=== PATIENT | female | born 1975 | race Caucasian/White ===

== ENCOUNTER 2020-08-17 10:00 | Outpatient (RCR) | payer BC, SELFPAY ==
--- NOTE | 2020-10-09 16:32 | MHC.PT.DC ---
[facility] [place] Office [place] Office [place] Office [address] [phone] F: [phone] F: [phone] F: [phone] F: [phone] Physical Therapy Discharge Report Diagnosis: R LEG PAIN Date of Surgery: Date of Evaluation: 06/16/20 Date of Discharge: 08/17/20 Treatments to Date: 13 Cancellations to Date: 1 No Shows to Date: 0 Discharge Status: Improved Function Independent with HEP Discharge Summary: PER LAST NOTE BY [facility] CADENA PT...pt overall feels PT has helped her regarding her pain severity, frequency, and ability to tolerate therapeutic and recreational activities. pt is I w/ HEP and has appropriate bands to perform ex's at home. pt was educated to continue to perform HEP at home to maintain gains made in PT. pt verbalized understanding. pt is D/C'd from this PT POC. Electronically signed by: MONSTER VALE PT Please sign and return to therapist. Thank you for your referral.
== END 2020-10-13 08:32 | disposition other institution (70) ==
LOC: HO.PT 10:00
PROVIDERS: PCP Internal Medicine; Visit Provider Internal Medicine
DX: M79.604 Pain in right leg (principal)
CPT/HCPCS: 97110; 97140; 97530

== ENCOUNTER 2024-06-09 14:00 | Outpatient (RCR) | payer BC, SELFPAY ==
[2024-06-07 10:05] VITALS: BP 140/68; PULSE 94
== END 2024-07-14 11:43 | disposition home or self-care (01) ==
LOC: HO.PT 14:00
PROVIDERS: PCP Internal Medicine; Visit Provider Family Medicine
DX: H81.10 Benign paroxysmal vertigo, unspecified ear (principal)
CPT/HCPCS: 95992; 97110; 97112; 97161

== ENCOUNTER 2024-10-25 16:56 | Emergency (ER) | payer BC, SELFPAY ==
[2024-10-25 17:07] VITALS: BP 129/70; PULSE 93; RESP 16; TEMP 36.6; O2SAT 97; BMI 26.6
--- NOTE | 2024-10-25 17:09 | ED.GENADULT ---
HPI - General Adult General Chief complaint: General Medical Stated complaint: vertigo Time Seen by Provider: 10/25/24 17:13 Source: patient Mode of arrival: ambulatory Limitations: no limitations History of Present Illness ED Provider: Nati Preciado PA-C HPI narrative: Patient is a 49 year old assigned female at with a history of GERD and vertigo presenting to the emergency department today with an episode of vertigo. Patient states that she has been having issues with her vertigo and is trying to get a referral back to [facility] PT because they always help her with this. Patient states that when she called PT they told her that the urgent care here could do it but the urgent care was done seeing patients today so she came in to the ER. Patient denies any lightheadedness, abdominal pain, nausea, vomiting, fever, chills, blurry vision, double vision, loss of vision, chest pain, difficulty breathing, shortness of breath, back pain, night sweats, pain with urination, increased urinary frequency, increased urinary urgency, blood in her urine or stool, syncope or a near syncopal episode, recent trauma or falls, bowel incontinence, bladder incontinence, or any other complaints at this time. Relieving factors: none Exacerbating factors: none Associated symptoms: denies other symptoms Treatments prior to arrival: none Related Data Previous Rx's ?Medication ?Instructions ?Recorded meclizine 25 mg chewable tablet 25 mg PO DAILY PRN dizziness #7 10/25/24 (Antivert) tabs Allergies Allergy/AdvReac Type Severity Reaction Status Date / Time Sulfa (Sulfonamide Allergy Unknown Unknown Verified 10/25/24 17:10 Antibiotics) Review of Systems Constitutional: Constitutional: Reports no additional constitutional complaints, Denies chills, Denies fever(s) and Denies night sweats Eyes: Eyes: Reports no additional eye complaints, Denies blurry vision, Denies change in vision, Denies diplopia, Denies eye discharge, Denies loss of vision and Denies eye pain ENT: Reports dizziness Cardiovascular: Cardiovascular: Reports no additional cardiovascular complaints, Denies chest pain, Denies lightheadedness, Denies Loss of Consciousness and Denies dyspnea Respiratory: Respiratory: Reports no additional respiratory complaints and Denies dyspnea Gastrointestinal: Gastrointestinal: Reports no additional gastrointestinal complaints, Denies abdominal pain, Denies melena, Denies hematochezia, Denies change in bowel habits and Denies change in stool character Genitourinary: Genitourinary: Denies hematuria, Denies urinary frequency, Denies dysuria, Denies urinary incontinence, Denies urinary hesitancy and Denies urinary urgency Musculoskeletal: Musculoskeletal: Reports no additional musculoskeletal complaints, Denies numbness and Denies tingling Neurologic: Reports dizziness, Denies loss of vision, Denies numbness and Denies tingling Psychiatric: Psychiatric: Reports no additional psychiatric complaints Endocrine: Endocrine: Reports no additional endocrine complaints Hematologic/Lymphatic: Hematologic/Lymphatic: Reports no additional hematologic/lymphatic complaints Allergic/Immunologic: Allergic/Immunologic: Reports no additional allergic/immunologic complaints [facility] Past Medical History Attestation statement: The following information was validated with the patient. 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 of leg Melorheostosis Hypercholesterolemia GERD (gastroesophageal reflux disease) Surgical History History of appendectomy S/P right knee arthroscopy Social History Social History Advance Directives: No Advance Directives Information Provided: No Advance Directives Date on File: 06/30/20 Do you have a plan to hurt others: No Plan Physical Exam ED Vital Signs: Vital Signs - 24 hr 10/25/24 17:07 Temperature 97.9 F Pulse Rate 93 Respiratory Rate 16 Blood Pressure 129/70 Pulse Oximetry 97 Oxygen Delivery Method Room Air BMI result Body Mass Index 26.6 Const General: cooperative, no acute distress, alert and awake Nutritional Appearance: well nourished Orientation/consciousness: patient oriented x3 Limitations: no limitations HENMT Head: Yes normal to inspection and Yes atraumatic Ears: hearing grossly normal bilaterally and external ears normal General nose exam: Normal external nose present, no nasal discharge noted and no epistaxis Face and sinus: Yes normal facial exam, No abrasion and No laceration Mouth: Normal oral and palatal mucosa present, no drooling and no muffled voice Eyes General: appearance normal, both eyes and all related structures Periorbital: periorbital findings normal Eyelids: Yes eyelids normal Conjunctivae: conjunctivae normal Pupils: Equal, round and reactive pupils present EOM: EOMs intact bilaterally Neck Neck: Yes normal visual inspection, Yes full ROM and Yes no lymphadenopathy Chest Chest palpation & inspection: normal inspection of the chest Resp Effort & Inspection: normal respiratory effort and able to speak in complete sentences GI Inspection: Yes normal to inspection Neuro General: patient oriented x3 and moves all extremities Cranial nerves: Yes Equal, round and reactive pupils present Cognition (Neuro): normal cognition Extrem General: Yes normal to inspection, Yes full ROM and Yes capillary refill normal Psych Appearance: grossly normal Mental Status: mental status grossly normal Affect: normal affect Attitude: cooperative Thought process: Normal thought process present Thought content: Normal thought content present Insight: Good insight present (Psych) Medical Decision Making Medical Decision Making MDM Narrative: Patient is a 49 year old assigned female at with a history of GERD and vertigo presenting to the emergency department today with an episode of vertigo. Patient's physical exam was unremarkable. I explained my physical exam findings to the patient. I answered all questions asked by the patient. I explained to the patient that unfortunately, we are unable to make physical therapy referrals from the emergency department. I offered to have another provider perform an Eply maneuver on the patient however, she declined. I stressed the importance of the patient taking her medication as directed (either prescribed or as the over the counter packaging recommends). I stressed the importance of the patient following up with her primary care provider. I stressed the importance of the patient returning to the emergency department immediately if her symptoms were to worsen or if she were to develop any dizziness, shortness of breath, difficulty breathing, chest pain, blurry vision, loss of vision, nausea, vomiting, abdominal pain, fever, chills, back pain, or any other complaints. Patient verbalized agreement and understanding with this treatment plan and discharge. Differential Diagnosis Differential Diagnoses: The differential diagnosis associated with the presentation includes Acute on chronic vertigo Admission/Observation Consideration of admission/observation: Escalation of care including admission/observation considered Patient would have been admitted to the hospital had her clinical presentation warranted hospital admission. Tests considered The following testing was considered but not selected: I considered obtaining a CBC, CMP, and head CT however, the patient's current clinical presentation did not warrant those at this time. I discussed this with the patient who verbalized understanding and agreement. Discharge Plan Discharge Clinical Impression: Vertigo Patient Disposition: Home, Self-Care Instructions: Vertigo (DC) Additional Instructions: Follow up with your primary care provider and a physical therapist. Return to the emergency department immediately if your symptoms worsen or if you develop any dizziness, shortness of breath, difficulty breathing, chest pain, blurry vision, loss of vision, nausea, vomiting, abdominal pain, fever, chills, back pain, or any other complaints. Prescriptions: New meclizine [Antivert] 25 mg tablet,chewable 25 mg PO DAILY PRN (Reason: dizziness) Qty: 7 0RF Referrals: Mitchell,Edwin Mccabe MD [Primary Care Provider] - Stand Alone Forms: Work/School Release Discharge Date/Time: 10/25/24 17:19 Print Language: Pashto
== END 2024-10-25 17:19 | disposition home or self-care (01) ==
LOC: HO.ED 17:18
PROVIDERS: Emergency Provider Emergency Medicine; PCP Internal Medicine
DX: R42 Dizziness and giddiness (principal); E78.00 Pure hypercholesterolemia, unspecified; K21.9 Gastro-esophageal reflux disease without esophagitis
CPT/HCPCS: 99281; 99283

== ENCOUNTER 2024-10-27 08:10 | Outpatient (AMB) | payer BC, SELFPAY ==
--- NOTE | 2024-10-27 08:34 | MHC.OFFWIV ---
Intake Vital Signs 10/27/24 08:44 Weight 210 lb BP 118/76 Blood Pressure Location Lt brachial Position Sitting Pulse 103 H Pulse Source Pulse Oximeter Pulse Oximetry (%) 99 Oxygen Delivery Method Room Air Intake Visit Reasons: EP vertigo Intake Note: Patient here for vertigo episode that has been going on for about 1 week and is looking for PT order. Patient Tobacco Use Status: Former Tobacco user Allergies Sulfa (Sulfonamide Antibiotics) Allergy (Unknown, Verified 10/25/24 17:10) Unknown HPI HPI Comments History of Present Illness Details She present to harriosn rm vertigo Hx of this due to head injury in 2017 She has seen PT for this in past; [facility] out of [place] which has helped She came here today because Dr. 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 Hypercholesterolemia GERD (gastroesophageal reflux disease) Surgical History History of appendectomy S/P right knee arthroscopy Social History Patient Tobacco Use Status: Former Tobacco user Advance Directives Date on File: 06/30/20 Review of Systems Const Denies body aches, Denies chills, Denies fatigue and Denies fever(s) Eyes Denies blurry vision, Denies change in vision and Denies loss of vision ENT Reports vertigo, Reports dizziness, Denies nasal congestion, Reports neck pain (she states due to shoulder pain ongoing with cortisone injection), Denies sinus pressure and Denies sore throat Card Denies chest pain, Denies syncope and Denies dyspnea Resp Denies chest congestion, Denies cough and Denies dyspnea GI Denies abdominal pain, Reports nausea and Denies vomiting Musc Denies back pain, Denies myalgias, Reports neck pain (she states due to shoulder pain ongoing with cortisone injection) and Denies tingling Neuro Denies confusion, Reports vertigo, Reports dizziness, Denies syncope, Denies loss of vision, Denies tingling and Denies paresthesias Psych Denies confusion Endo Denies fatigue Physical Exam Vital Signs: Last Vital Signs Pulse 103 H 10/27/24 08:44 BP 118/76 10/27/24 08:44 Pulse Ox 99 10/27/24 08:44 Oxygen Delivery Method Room Air 10/27/24 08:44 General: Non-toxic, NAD. Speaking full sentences. Skin: Warm dry throughout Eye: EOMI, PERRLA HENT: Airway patent. Uvula midline. No pharyngeal erythema or edema. No DENTAL PROSTHETIST. Bilateral canals clear. TM non-erythematous, non-bulging. No TM perforation or hemotympanum noted. Respiratory: CTA bilaterally. No wheezes, rales or rhonchi Cardiac: RRR. No murmur MSK: Full ROM extremities. Neurology: A/O x 3. CN 2-12 grossly intact. Negative pronator drift. Finger to nose tracing equal 5/5 family sociologist strength. No aphasia or facial droop. Gait without abnormality Psych: Good mood and affect Const General: No confusion Orientation/consciousness: No confusion Neuro General: No confusion Assessment & Plan Assessment & Plan (1) Vertigo: Code(s): R42 - Dizziness and giddiness Plan: Patient seen and evaluated. No neurological deficit on exam She has had these symptoms in the past PT referral given Discussed s/s such as parethesias, weakness, CP, SOB, syncope which warrant ER evaluation In symptomatic do not drive Patient gave verbal understanding and had no additional questions or concerns at time of discharge All questions answered Orders: Orders PT Evaluation and Treatment Today R42 - Dizziness and giddiness Coding Level of Care Code Est Pt Level 3 (64289) Diagnoses Vertigo R42
[2024-10-27 08:44] VITALS: BP 118/76; PULSE 103; O2SAT 99
== END 2024-10-27 09:00 | disposition home or self-care (01) ==
PROVIDERS: PCP Internal Medicine; Visit Provider Physician Assistant
DX: R42 Dizziness and giddiness (principal)

== ENCOUNTER 2024-11-25 12:59 | Outpatient (RCR) | payer BC, SELFPAY ==
[2024-11-25 13:07] VITALS: BP 129/75; PULSE 91
--- NOTE | 2024-11-25 14:01 | MHC.PT.EP ---
[facility] Office [place] Office [place] Office [address] Fatimah Bennett [address] [phone] F: [phone] F: [phone] F: [phone] F: [phone] Physical Therapy Plan of Care Date of Evaluation: 11/25/24 Date of Surgery: NA Diagnosis: Dizziness and giddiness BPPV, B Assessment: Caty is a 49 year old female who is referred to PT for dizziness and giddiness, BPPV B . She reports of having sudden onset of room spinning dizziness about 1 month. She has had BPPV in the past and this has resolved with PT. She went to a different clinic for BPPV assessment and treatment. She left feeling worse and therefore did not go back for a follow up. She is here in PT to make sure her symptoms have resolved. She has had no BPPV symptoms in the last 1 weeks. On PT examination she presented with intact saccades, smooth pursuit, intact visual tracking, negative DVA, DGI- 24/24, GSOP- 1-6 WNL, Fakuda- WNL, and was negative for BPPV in B [place] and B roll test. She is independent with all ADLS and she works as sound technician. No PT indicated at this time. Frequency and Duration: The patient will be seen Short Term Goals: Dedicated Owner Operator Goals: Treatment Plan: Modalities to reduce pain, spasms and effusion. Manual therapy to restore motion and function. Therapeutic exercise to improve strength and flexibility. Neuromuscular re-education for posture and balance. Therapeutic activities to return to functional activities of daily living. Electronically signed by: Tiera Larsen PT DPT Please sign and return to therapist. Thank you for your referral.
--- NOTE | 2025-02-01 10:22 | MHC.PT.DC ---
[facility] [place] Office [place] Office [place] Office [address] Fatimah Bennett [address] [phone] F: [phone] F: [phone] F: [phone] F: [phone] Physical Therapy Discharge Report Diagnosis: Dizziness and giddiness BPPV, B Date of Surgery: NA Date of Evaluation: 11/25/24 Date of Discharge: 02/01/25 Treatments to Date: 1 Cancellations to Date: 0 No Shows to Date: 0 Discharge Status: Discharge Summary: Caty was negative for vestibular dysfunction. No PT indicated at this time. Electronically signed by: Tiera Larsen, PT DPT Please sign and return to therapist. Thank you for your referral.
== END 2025-02-01 10:23 | disposition home or self-care (01) ==
LOC: HO.PT 12:59
PROVIDERS: PCP Internal Medicine; Visit Provider Physician Assistant
DX: H81.13 Benign paroxysmal vertigo, bilateral (principal)
CPT/HCPCS: 97112; 97161